=== PATIENT | female | born 1960 | race Caucasian/White ===

== ENCOUNTER 2016-11-19 21:07 | Emergency (ER) | payer BC, OTHER ==
[~2016-11-19] VITALS: Ht 172.7 cm; Wt 127.8 kg
[~2016-11-19 21:07] MED LIST: CALCIUM 500 +1 EACH PO; CELECOXIB200 MG PO; ENDOCET 5-3251 EACH PO; FERROUS SULFAT325 MG PO; LEVOTHYROXINE175 MCG PO; LOVENOX40 MG/0.4 SC; OXYCODONE-APAP1 EACH PO; SENNA PLUS TAB1 EACH PO; SLOW RELEASE I160 MG PO; TRAMADOL HCL50 MG PO; ZESTORETIC 20-1 EAC1 PO
[2016-11-19 22:07] LABS: HEMATOCRIT 39.1 % (36.0-46.0); MCH 28.9 PG (29.0-34.0); MCHC 34.3 G/DL (30.0-36.0); MCV 84.4 FL (83-99); PLATELET COUNT 226 K/uL (156-360); RBC DIS.WIDTH-CV 13.3 % (11.8-14.6); RBC DIS.WIDTH-SD 41.1 % (39-53); RED BLOOD COUNT 4.63 M/uL (3.80-5.20); WHITE BLOOD COUNT 10.8 K/uL (4.1-10.2)
[2016-11-19 22:23] LABS: CHLORIDE 101 mEq/L (99-109); POTASSIUM 3.4 mEq/L (3.7-5.4); SODIUM 137 mEq/L (136-147)
[2016-11-19 22:24] LABS: GLUCOSE 148 mg/dL (70-99)
[2016-11-19 22:26] LABS: ANION GAP 12 MEQ/L (2-14)
[2016-11-19 22:28] LABS: GFR ESTIMATE (CALCULATED) > 59 mL/min/
[2016-11-19 22:29] LABS: UREA NITROGEN (BUN) 13 mg/dL (9-23)
[2016-11-20] MEDS ORDERED: TRAMADOL HCL50 MG PO (00:32)
[2016-11-20 01:25] VITALS: BP 110/80
== END 2016-11-20 01:25 | disposition home or self-care (01) ==
LOC: EME 21:07
PROVIDERS: Emergency Medicine
PROC: 0SSBXZZ Reposition Left Hip Joint, External Approach (ICD-10-PCS; principal; 2016-11-19)
DX: T84.021A Dislocation of internal left hip prosthesis, initial encounter (principal); Y79.2 Prosthetic and other implants, materials and accessory orthopedic devices associated with adverse incidents; X50.9XXA Other and unspecified overexertion or strenuous movements or postures, initial encounter; Y93.89 Activity, other specified; Z96.643 Presence of artificial hip joint, bilateral; I10 Essential (primary) hypertension; E03.9 Hypothyroidism, unspecified; Z88.0 Allergy status to penicillin
CPT/HCPCS: 73501; 73502; 80048; 85027; 99281; 99285; J2270; J2405; J7030